=== PATIENT | male | born 1965 | race Caucasian/White ===

== ENCOUNTER 2021-01-03 18:42 | Emergency (ER) | payer OTHER ==
[~2021-01-03] VITALS: Ht 172.7 cm; Wt 104.3 kg
[~2021-01-03 18:42] MED LIST: IBUPROFEN 800800 M1 PO; LANTUS SUBQ; LIPITOR10 MG PO; METFORMIN HCL500 MG PO
[2021-01-03] MEDS ORDERED: LISINOPRIL10 MG PO (18:59)
[2021-01-03 19:37] LABS: ABSOLUTE BASOPHILS 0.1 thou/uL (0.0-0.2); ABSOLUTE EOSINOPHILS 0.2 thou/uL (0.0-0.7); ABSOLUTE LYMPHOCYTES 2.5 thou/uL (0.8-5.3); ABSOLUTE MONOCYTES 0.7 thou/uL (0.0-1.2); ABSOLUTE NEUTROPHILS 5.9 thou/uL (1.6-8.1); BASOPHILS 0.8 %; EOSINOPHILS 2.1 %; HEMATOCRIT 43.9 % (42.0-52.0); HEMOGLOBIN 14.2 gm/dL (14.0-18.0); LYMPHOCYTES 26.7 %; MCH 27.7 pg (26.0-34.0); MCHC 32.4 g/dL (28.0-37.0); MCV 85.6 fL (80.0-100.0); MONOCYTES 7.8 %; MPV 9.6 fl. (7.2-11.1); NUCLEATED RBCS 0 /100WBC; PLATELET COUNT* 178 thou/uL (150-400); POLYS 62.6 %; RBC 5.13 mil/uL (4.50-6.00); RDW-CV 15.5 % (10.5-14.5); WBC 9.4 thou/uL (4.0-11.0)
[2021-01-03 19:44] LABS: URINE BILIRUBIN NEGATIVE (Negative); URINE BLOOD NEGATIVE (Negative); URINE CLARITY HAZY; URINE COLOR YELLOW; URINE GLUCOSE-RANDOM NEGATIVE (Negative); URINE KETONES NEGATIVE (Negative); URINE LEUKOCYTES-REFLEX TRACE (Negative); URINE NITRITE-REFLEX NEGATIVE (Negative); URINE PROTEIN TRACE (Negative); URINE SPECIFIC GRAVITY >= 1.030 (1.005-1.030); URINE UROBILINOGEN 0.2 E.U./dl (0.2-1.0)
[2021-01-03 19:49] LABS: CALCIUM 8.8 mg/dL (8.5-10.1); POTASSIUM 4.3 mmol/L (3.5-5.1)
[2021-01-03 19:52] LABS: BACTERIA-REFLEX None Seen /HPF (None Seen); CASTS None Seen /LPF (None Seen); CRYSTALS None Seen /LPF (None Seen); MUCUS 0-3 Light strn/LPF (None Seen); SQUAMOUS >10 Many /LPF (0-3); URINE RBC None Seen /HPF (0-2); URINE WBC-REFLEX 0-5 Rare /HPF (0-5)
[2021-01-03 19:53] LABS: ALBUMIN 3.6 g/dL (3.4-5.0); MAGNESIUM 2.1 mg/dL (1.8-2.4); TOTAL BILIRUBIN 0.4 mg/dL (<0.1-1.0); TOTAL PROTEIN 7.1 g/dL (6.4-8.2)
[2021-01-03] MEDS ORDERED: KLOR-CON 1010 MEQ PO (21:05)
[2021-01-03] MEDS ORDERED: LASIX 40 MG TAB40 MG PO (21:05)
[2021-01-03 21:21] VITALS: BP 139/96
== END 2021-01-03 21:22 | disposition home or self-care (01) ==
LOC: M.ERS 18:42
PROVIDERS: Emergency Medicine
DX: J81.1 Chronic pulmonary edema (principal); R22.43 Localized swelling, mass and lump, lower limb, bilateral

== ENCOUNTER 2021-03-07 00:25 | Inpatient (IN) | payer OTHER ==
[~2021-03-07] VITALS: Ht 172.7 cm; Wt 106.6 kg
[~2021-03-07 00:25] MED LIST changes: +KLOR-CON 1010 MEQ PO; +LASIX 40 MG TAB40 MG PO; +LISINOPRIL10 MG PO
[2021-03-07 00:33] VITALS: BP 120/77
[2021-03-07 01:33] LABS: ABSOLUTE LYMPHOCYTES 1.1 thou/uL (0.8-5.3); ABSOLUTE MONOCYTES 0.6 thou/uL (0.0-1.2); BASOPHILS 0.4 %; EOSINOPHILS 0.2 %; LYMPHOCYTES 18.3 %; WBC 6.3 thou/uL (4.0-11.0)
[2021-03-07 01:35] LABS: ABSOLUTE NEUTROPHILS 4.4 thou/uL (1.6-8.1); HEMATOCRIT 43.7 % (42.0-52.0); HEMOGLOBIN 14.8 gm/dL (14.0-18.0); MCH 27.7 pg (26.0-34.0); MCHC 33.8 g/dL (28.0-37.0); MCV 81.8 fL (80.0-100.0); MONOCYTES 10.2 %; MPV 9.3 fl. (7.2-11.1); NUCLEATED RBCS 0 /100WBC; PLATELET COUNT* 115 thou/uL (150-400); POLYS 70.9 %; RBC 5.34 mil/uL (4.50-6.00)
[2021-03-07 01:44] LABS: CALCIUM 8.5 mg/dL (8.5-10.1); POTASSIUM 4.5 mmol/L (3.5-5.1)
[2021-03-07 01:46] LABS: INR 1.1; PROTIME 11.7 Seconds (9.20-11.50)
[2021-03-07 01:55] LABS: ALBUMIN 3.4 g/dL (3.4-5.0); TOTAL BILIRUBIN 0.6 mg/dL (<0.1-1.0); TOTAL PROTEIN 7.5 g/dL (6.4-8.2)
[2021-03-07 01:59] LABS: INFLUENZA A ANTIGEN Negative (Negative); INFLUENZA B ANTIGEN Negative (Negative)
[2021-03-07 04:12] LABS: BE -1.7 mmol/L (-2 to +3); PCO2 35.8 mmHg (35.0-45.0); PO2 82.6 mmHg (75.0-100.0); pH 7.411 (7.340-7.450)
[2021-03-07 04:16] LABS: URINE BILIRUBIN NEGATIVE (Negative); URINE BLOOD NEGATIVE (Negative); URINE CLARITY CLEAR; URINE COLOR YELLOW; URINE GLUCOSE-RANDOM TRACE (Negative); URINE KETONES NEGATIVE (Negative); URINE LEUKOCYTES-REFLEX NEGATIVE (Negative); URINE NITRITE-REFLEX NEGATIVE (Negative); URINE PROTEIN NEGATIVE (Negative); URINE SPECIFIC GRAVITY 1.025 (1.005-1.030); URINE UROBILINOGEN 0.2 E.U./dl (0.2-1.0)
[2021-03-07 08:37] VITALS: BP 127/76
[2021-03-07 10:04] LABS: CHOLESTEROL 114 mg/dL (<200); HDL CHOLESTEROL 33 mg/dL (>40); LDL CHOLESTEROL 63 mg/dL (<100); TC:HDL 3.5 Ratio (Not establshd); TRIGLYCERIDE 92 mg/dL (<150); VLDL 18 mg/dL (<40)
[2021-03-07 10:13] LABS: SERUM ASSESSMENT Clear
[2021-03-07 10:40] VITALS: BP 117/82
--- NOTE | 2021-03-07 11:49 | EKG ---
[place] [address] ELECTROCARDIOGRAM REPORT Name: ALLAN CRUZ Room: [place] [address] ADM IN [facility]#: [id number] Admission: 03/07/21 Attend Phys: Jace Gray, Discharge: Date of : 69 Date of Service: 03/07/21 0027 Report #: [id number] THIS REPORT FOR: //name// [facility] ED Test Date: 2021-03-07 Test Time: 00:27:00 Pat Name: ALLAN CRUZ Department: Room: [facility] Gender: M Case Manager Specialist: ANUSHKA : 1965 Requested By: Keturah Vanessa Order Number: [id number] MD: Anam Anna Measurements Intervals [place] Rate: 101 P: 60 [place]: 169 QRS: 119 QRSD: 125 T: 38 QT: 376 QTc: 488 Interpretive Statements Sinus tachycardia Ventricular premature complex Right bundle branch block Probable left atrial enlargement Nonspecific intraventricular conduction delay Probable anteroseptal infarct, old No previous ECG available for comparison Electronically Signed On 03-07-2021 11:49:11 TRAINMASTER by Anam Anna [email or web address] <ELECTRONICALLY SIGNED> By: Anam Anna MD, FAC 03/07/21 1149 0027 0027 Anam Anna MD, [facility] /EPI
--- NOTE | 2021-03-07 11:51 | EKG ---
[place] [address] ELECTROCARDIOGRAM REPORT Name: ALLAN CRUZ Room: [place] [address] 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 : 1965 Requested By: Keturah Vanessa Order Number: [id number] MD: Anam Anna Measurements Intervals [place] Rate: 94 P: 58 [place]: 177 QRS: 112 QRSD: 121 T: 13 QT: 399 QTc: 500 Interpretive Statements Sinus rhythm Nonspecific intraventricular conduction delay Compared to ECG 03/07/2021 00:27:00 Sinus tachycardia no longer present Ventricular premature complex(es) no longer present Myocardial infarct finding no longer present Electronically Signed On 03-07-2021 11:50:54 DIRECTOR OF MANUFACTURING by Anam Anna [email or web address] <ELECTRONICALLY SIGNED> By: Anam Anna MD, FACC 03/07/21 1150 0343 0343 Anam Anna MD, FACC /EPI
--- NOTE | 2021-03-07 12:38 | 2DMMODE ---
[place] [address] 2 D/M-MODE ECHOCARDIOGRAM Name: ALLAN CRUZ Ben Room: [place] [address] ADM IN [facility]#: [id number] Admission: 03/07/21 Attend Phys: Jace Gray, Discharge: Date of : 69 Date of Service: 03/07/21 1238 Report #: [id number] THIS REPORT FOR: cc: Dalia Carrero,Anam Rodriguez MD [facility] ~ APPROVED REPORT Study performed: 03/07/2021 11:10:06 EXAM: Comprehensive 2D, Doppler, and color-flow Echocardiogram Patient Location: In-Patient Room #: er Status: routine BSA: 2.19 HR: 95 bpm BP: 127/76 mmHg Rhythm: NSR Other Information Study Quality: Good Indications Cardiomegaly Elevated Troponin 2D Dimensions IVSd: 10.39 (7-11mm) LVOT Diam: 21.71 (18-24mm) LVDd: 64.68 mm PWd: 12.99 (7-11mm) Ascending Ao: 35.57 (22-36mm) LVDs: 54.34 (25-40mm) Aortic Root: 31.72 mm Volumes Left Atrial Volume (Systole) LA ESV Index: 41.10 mL/m2 Aortic Valve AoV Peak Ollie.: 1.68 m/s AO Peak Gr.: 11.26 mmHg LVOT Max P.50 mmHg AO Mean Gr.: 6.62 mmHg LVOT Mean P.66 mmHg LVOT Max V: 0.61 m/s AO V2 VTI: 23.36 cm LVOT Mean V: 0.37 m/s JOSELIN (VTI): 1.22 cm2 LVOT V1 VTI: 7.69 [place] [address] 2 D/M-MODE ECHOCARDIOGRAM Name: ALLAN CRUZ Room: [address] IN [facility]#: [id number] Admission: 03/07/21 Attend Phys: Jace Gray, Discharge: Date of : 69 Date of Service: 03/07/21 1238 Report #: [id number] Mitral Valve E/A Ratio: 2.56 MV Decel. Time: 111.88 ms MV E Max Ollie.: 1.13 m/s MV PHT: 32.45 ms MVA (PHT): 6.78 cm2 TDI E/Lateral E': 14.13 E/Medial E': 28.25 Medial E' Ollie.: 0.04 m/s Lateral E' Ollie.: 0.08 m/s Pulmonary Valve PV Peak Ollie.: 0.78 m/s PV Peak Gr.: 2.45 mmHg Tricuspid Valve RAP Estimate: 5.00 mmHg TR Peak Gr.: 40.70 mmHg RVSP: 45.00 mmHg PA Pressure: 45.00 mmHg Left Ventricle The left ventricle is normal size. There is severe global hypokinesis of the left ventricle. Mild concentric left ventricular hypertrophy. Left ventricular systolic function is severely decreased. LVEF is 25-30%. Transmitral Doppler flow pattern suggests restrictive physiology. Right Ventricle Right ventricle is moderately dilated. The right ventricular systolic function is normal. Atria Left atrium is mild to moderately dilated. Right atrium is mildly dilated. Aortic Valve Mild aortic valve sclerosis. No aortic regurgitation is present. Moderate aortic stenosis. Mitral Valve The mitral valve is normal in structure. Mild mitral regurgitation. No evidence of mitral valve stenosis. Tricuspid Valve The tricuspid valve is normal in structure. [place] [address] 2 D/M-MODE ECHOCARDIOGRAM Name: ANTHONYALLAN L Room: [address] IN [facility]#: [id number] Admission: 03/07/21 Attend Phys: Jace Gray, Discharge: Date of : 69 Date of Service: 03/07/21 1238 Report #: [id number] regurgitation. Moderate pulmonary hypertension. The RVSP is 50-55 mmHg. Pulmonic Valve The pulmonary valve is normal in structure. Trace pulmonic regurgitation. Great Vessels The aortic root is normal in size. IVC is normal in size and collapses >50% with inspiration. Pericardium There is no pericardial effusion. <Conclusion> The left ventricle is normal size. Mild concentric left ventricular hypertrophy. Left ventricular systolic function is severely decreased. LVEF is 25-30%. Transmitral Doppler flow pattern suggests restrictive physiology. There is severe global hypokinesis of the left ventricle. Right ventricle is moderately dilated. Left atrium is mild to moderately dilated. Right atrium is mildly dilated. Mild aortic valve sclerosis. Moderate aortic stenosis. Mild mitral regurgitation. Mild tricuspid regurgitation. Moderate pulmonary hypertension. The RVSP is 50-55 mmHg. Trace pulmonic regurgitation. IVC is normal in size and collapses >50% with inspiration. <ELECTRONICALLY SIGNED> By: Anam Anna MD, FACC 03/07/21 1238 1238 1238 Anam Anna MD, FACC /INF
[2021-03-07 12:40] VITALS: BP 137/103
[2021-03-07 16:40] VITALS: BP 117/81
[2021-03-07 22:45] VITALS: BP 175/90
[2021-03-08] VITALS (9 sets, daily range): BP systolic 78–132; BP diastolic 56–77
[2021-03-08 04:02] LABS: HEMATOCRIT 43.1 % (42.0-52.0); HEMOGLOBIN 14.6 gm/dL (14.0-18.0); MCH 27.6 pg (26.0-34.0); MCHC 33.8 g/dL (28.0-37.0); MCV 81.6 fL (80.0-100.0); MPV 9.3 fl. (7.2-11.1); RBC 5.29 mil/uL (4.50-6.00); RDW-CV 15.7 % (10.5-14.5); WBC 5.8 thou/uL (4.0-11.0)
[2021-03-08 04:19] LABS: ALBUMIN 3.3 g/dL (3.4-5.0); CALCIUM 8.9 mg/dL (8.5-10.1); CREATININE 1.2 mg/dL (0.6-1.3); MAGNESIUM 1.9 mg/dL (1.8-2.4); POTASSIUM 4.4 mmol/L (3.5-5.1); TOTAL BILIRUBIN 0.5 mg/dL (<0.1-1.0); TOTAL PROTEIN 6.9 g/dL (6.4-8.2)
[2021-03-08 05:07] LABS: GLYCOHEMOGLOBIN (HGB A1C) 10.1 % (4.8-5.6)
[2021-03-09] VITALS: BP 102/51
[2021-03-09 04:34] VITALS: BP 100/69; BP 131/48
[2021-03-09 04:51] LABS: HEMATOCRIT 42.4 % (42.0-52.0); HEMOGLOBIN 14.1 gm/dL (14.0-18.0); MCH 27.2 pg (26.0-34.0); MCHC 33.2 g/dL (28.0-37.0); MCV 81.8 fL (80.0-100.0); MPV 10.3 fl. (7.2-11.1); RBC 5.19 mil/uL (4.50-6.00); RDW-CV 15.6 % (10.5-14.5); WBC 6.2 thou/uL (4.0-11.0)
[2021-03-09 05:04] LABS: CALCIUM 8.7 mg/dL (8.5-10.1); CREATININE 1.1 mg/dL (0.6-1.3); POTASSIUM 4.6 mmol/L (3.5-5.1)
[2021-03-09 08:00] VITALS: BP 103/76
[2021-03-09 12:00] VITALS: BP 113/82
== END 2021-03-09 17:00 | disposition left against medical advice (07) | DRG 177 ==
LOC: M.ERS 00:25 → M.TBA-ER 04:36 → M.ORTHSURG 03-08 18:36
PROVIDERS: Internal Medicine; Personal Emergency Response Attendant; Registered Nurse; ADMIT Internal Medicine; ATTEND Internal Medicine
PROC: XW033E5 Introduction of Remdesivir Anti-infective into Peripheral Vein, Percutaneous Approach, New Technology Group 5 (ICD-10-PCS; principal; 2021-03-07)
PROC: 5A0935A Assistance with Respiratory Ventilation, Less than 24 Consecutive Hours, High Flow/Velocity Cannula (ICD-10-PCS; 2021-03-08)
DX: U07.1 COVID-19 (principal); J12.82 Pneumonia due to coronavirus disease 2019; J96.01 Acute respiratory failure with hypoxia; I50.23 Acute on chronic systolic (congestive) heart failure; E87.1 Hypo-osmolality and hyponatremia; L03.90 Cellulitis, unspecified; E11.9 Type 2 diabetes mellitus without complications; F17.210 Nicotine dependence, cigarettes, uncomplicated; I11.0 Hypertensive heart disease with heart failure; E11.65 Type 2 diabetes mellitus with hyperglycemia; I35.0 Nonrheumatic aortic (valve) stenosis; Z53.29 Procedure and treatment not carried out because of patient's decision for other reasons